=== PATIENT | female | born 1955 | race Caucasian/White ===

== ENCOUNTER 2018-05-24 08:10 | Observation (INO) | payer OTHER ==
[2018-05-24] MEDS ORDERED: ASPIRIN 81 MG CHEWABLE TAB PO ONE (08:32)
--- NOTE | 2018-05-24 08:36 | EDPHY ---
H & P Time Seen by Provider: 05/24/18 08:26 HPI/ROS: CHIEF COMPLAINT: Shortness of breath, chest pressure HISTORY OF PRESENT ILLNESS: The patient is a 62-year-old female with a history of hypothyroidism who presents emergency department with mild chest pressure and shortness of breath. The patient states she is visiting from [place]. They flew in on Saturday. She is staying in a cabin at 85 [address]. Last night it around 930 she began the developed shortness of breath. This was mild. She also had a mild and subtle chest pressure. This continued throughout the night. She had on restful sleep. She subsequently woke her up at 5:30 a.m.. They did send the mountain and her symptoms improved. She now has mild chest discomfort. No shortness of breath. No leg pain or swelling. No fevers or chills. No cough. REVIEW OF SYSTEMS: My complete review of systems is negative except as mentioned in the HPI. Past Medical/Surgical History: Includes hypothyroidism, GERD Past surgical history: Recent hand surgery Social history: The patient is . She is from [place]. She does not smoke. Smoking Status: Never smoked Physical Exam: Vitals noted. 207/127 GENERAL: Well-appearing, in no acute distress, alert. HEENT: Eyes normal to inspection, normal pharynx, no signs of dehydration. NECK: No thyromegaly, no lymphadenopathy, supple. RESPIRATORY: Clear to auscultation bilaterally, no rales, rhonchi or wheezing. CVS: Regular rate and rhythm, no rubs, murmurs, or gallops. ABDOMEN: Soft, nontender, nondistended, no organomegaly. BACK: Normal to inspection, no CVA tenderness. SKIN: Normal color, no rash, warm, dry. No pallor. EXTREMITIES: No pedal edema, no calf tenderness, no Homans sign or cords, no joint swelling. NEURO/PSYCH: Alert and oriented x3, normal mood and affect, normal motor sensory exam. No obvious cranial nerve deficit. Constitutional: Initial Vital Signs Temperature (C) 36.4 C 05/24/18 08:19 Heart Rate 66 05/24/18 08:19 Respiratory Rate 18 05/24/18 08:19 Blood Pressure 207/127 H 05/24/18 08:19 O2 Sat (%) 99 05/24/18 08:19 O2 Delivery Mode Room Air Allergies/Adverse Reactions: No Known Allergies Allergy (Unverified 05/24/18 08:18) Home Medications: Medication Instructions Recorded DEXILANT 05/24/18 Singulair 05/24/18 Synthroid 05/24/18 Medical Decision Making - Diagnostics Imaging Results: Imaging Impressions Chest X-Ray 05/24/18 08:32 Impression: Negative chest.. ED Course/Re-evaluation: In the emergency department I discussed possible etiologies with the patient and her . I answered all her questions. Repeat blood pressure was obtained. Laboratory studies, EKG and chest x-ray were ordered. Aspirin was given orally. EKG shows normal sinus rhythm, normal rate, normal axis, normal intervals. There are no ST or T-wave abnormalities. EKG is normal as interpreted by me. 173/115. Due the patient's chest pressure and elevated blood pressure she is given nitroglycerin sublingual. Post sublingual nitroglycerin the patient's blood pressure of 157/100. CBC, chemistry, LFTs are normal. Troponin is negative. Her repeat pressure was 177/102. I went discussed the findings with the patient. When I was in the room her diastolic pressure was 111. I discussed the plan for observation. I discussed the case with the hospitalist service, Dr. Silva. Dr. Garcia will admit. Differential Diagnosis: My differential includes but is not limited to ACS, acute [place], CHF, dissection, aneurysm, pneumonia, GERD, hypertensive urgency, hypertensive emergency, HAPE - Data Points Laboratory Results: Laboratory Results 05/24/18 08:37 05/24/18 08:37 05/24/18 05/24/18 05/24/18 08:40 08:37 08:37 WBC RBC Hgb Hct MCV MCH MCHC RDW Plt Count MPV Neut % (Auto) Lymph % (Auto) Foard % (Auto) Eos % (Auto) Baso % (Auto) Nucleat RBC Rel Count Absolute Neuts (auto) Absolute Lymphs (auto) Absolute Monos (auto) Absolute Eos (auto) Absolute Basos (auto) Absolute Nucleated RBC Immature Gran % Immature Gran # D-Dimer < 0.27 ug/mLFEU ug/mLFEU (0.00-0.50) Sodium 139 mEq/L mEq/L (135-145) Potassium 4.2 mEq/L mEq/L (3.3-5.0) Chloride 102 mEq/L mEq/L (97-110) Carbon Dioxide 27 mEq/l mEq/l (22-31) Anion Gap 10 mEq/L mEq/L (8-16) BUN 18 mg/dL mg/dL (7-23) Creatinine 0.8 mg/dL mg/dL (0.6-1.0) Estimated GFR > 60 Glucose 111 mg/dL H mg/dL (70-100) Calcium 9.7 mg/dL mg/dL (8.5-10.4) Total Bilirubin 0.5 mg/dL mg/dL (0.1-1.4) Conjugated Bilirubin 0.2 mg/dL mg/dL (0.0-0.5) Unconjugated Bilirubin 0.3 mg/dL mg/dL (0.0-1.1) AST 26 IU/L IU/L (14-46) ALT 35 IU/L IU/L (9-52) Alkaline Phosphatase 123 IU/L IU/L (38-126) POC Troponin I 0.01 ng/mL ng/mL (0.00-0.08) NT-Pro-B Natriuret Pep 115 pg/mL pg/mL (0-125) Total Protein 7.3 g/dL g/dL (6.3-8.2) Albumin 4.1 g/dL g/dL (3.5-5.0) Lipase 81 IU/L IU/L (23-300) 05/24/18 08:37 WBC 8.45 10^3/uL 10^3/uL (3.80-9.50) RBC 5.10 10^6/uL 10^6/uL (4.18-5.33) Hgb 14.7 g/dL g/dL (12.6-16.3) Hct 42.8 % % (38.0-47.0) MCV 83.9 fL fL (81.5-99.8) MCH 28.8 pg pg (27.9-34.1) MCHC 34.3 g/dL g/dL (32.4-36.7) RDW 13.0 % % (11.5-15.2) Plt Count 259 10^3/uL 10^3/uL (150-400) MPV 9.8 fL fL (8.7-11.7) Neut % (Auto) 73.1 % % (39.3-74.2) Lymph % (Auto) 19.6 % % (15.0-45.0) Foard % (Auto) 5.2 % % (4.5-13.0) Eos % (Auto) 1.2 % % (0.6-7.6) Baso % (Auto) 0.5 % % (0.3-1.7) Nucleat RBC Rel Count 0.0 % % (0.0-0.2) Absolute Neuts (auto) 6.18 10^3/uL 10^3/uL (1.70-6.50) Absolute Lymphs (auto) 1.66 10^3/uL 10^3/uL (1.00-3.00) Absolute Monos (auto) 0.44 10^3/uL 10^3/uL (0.30-0.80) Absolute Eos (auto) 0.10 10^3/uL 10^3/uL (0.03-0.40) Absolute Basos (auto) 0.04 10^3/uL 10^3/uL (0.02-0.10) Absolute Nucleated RBC 0.00 10^3/uL 10^3/uL (0-0.01) Immature Gran % 0.4 % % (0.0-1.1) Immature Gran # 0.03 10^3/uL 10^3/uL (0.00-0.10) D-Dimer Sodium Potassium Chloride Carbon Dioxide Anion Gap BUN Creatinine Estimated GFR Glucose Calcium Total Bilirubin Conjugated Bilirubin Unconjugated Bilirubin AST ALT Alkaline Phosphatase POC Troponin I NT-Pro-B Natriuret Pep Total Protein Albumin Lipase Medications Given: Discontinued Medications Aspirin (Aspirin) 324 mg PO EDNOW ONE Stop: 05/24/18 08:33 Last Admin: 05/24/18 08:46 Dose: 324 mg Labetalol HCl (Trandate Injection) 10 mg IVP ONCE ONE Stop: 05/24/18 09:59 Last Admin: 05/24/18 10:04 Dose: Not Given Nitroglycerin (Nitrostat) 0.4 mg SL EDNOW ONE Stop: 05/24/18 08:41 Last Admin: 05/24/18 08:46 Dose: 0.4 mg Point of Care Test Results: Chemistry 05/24/18 08:40 POC Troponin I 0.01 ng/mL ng/mL (0.00-0.08) Departure - Departure Disposition: [facility] Inpatient Acute Clinical Impression: Hypertensive urgency Chest pain Qualifiers: Chest pain type: unspecified Qualified Code(s): R07.9 - Chest pain, unspecified Hypertension Qualifiers: Hypertension type: unspecified Qualified Code(s): I10 - Essential (primary) hypertension Condition: Good Instructions: Chest Pain (ED), Hypertension (ED) Referrals: NANCY SHARMA [Other] - As per Instructions
--- NOTE | 2018-05-24 08:38 | CPEKG ---
Heart Rate: 60 RR Interval: 1000 P-R Interval: 184 QRSD Interval: 74 QT Interval: 432 QTC Interval: 432 P [place]: -1 QRS [place]: -7 T Wave [place]: 26 EKG Severity - NORMAL ECG - EKG Impression: SINUS RHYTHM Electronically Signed By: Yue Hall 26-May-2018 07:59:08
[2018-05-24] MEDS ORDERED: NITROGLYCERIN 0.4 MG BTL SL ONE ×2 (08:40)
[2018-05-24 08:46] LABS: PLATELET COUNT 259 10^3/uL (150-400)
[2018-05-24] MEDS ORDERED: LABETALOL HCL 5 MG/ML 20 ML MDV IVP ONE (09:58)
[2018-05-24] MEDS ORDERED: ACETAMINOPHEN 325 MG TAB PO PRN (10:14)
[2018-05-24] MEDS ORDERED: ONDANSETRON DISINTEGRATING 4 MG TAB PO PRN (10:14)
[2018-05-24] MEDS ORDERED: ONDANSETRON 4 MG/2 ML VIAL IVP PRN (10:14)
[2018-05-24] MEDS ORDERED: ACETAMINOPHEN 325 MG TAB ONE (11:36)
--- NOTE | 2018-05-24 13:51 | GHP ---
[f rep st] HISTORY AND PHYSICAL DATE OF ADMISSION: 05/24/2018 CHIEF COMPLAINT: Shortness of breath, chest pressure. HISTORY OF PRESENT ILLNESS: A 62-year-old female visiting from [place] presenting with shortness of breath and chest pressure. She has been staying up in [place] since Saturday night at an elev ation of 8500 feet. Last night at 9:30, she developed shortness of breath. It was hard to breathe d eeply. Noticed substernal chest pressure like a weight was on her chest. This did not radiate to he r jaw, neck or back. No tingling in her fingers. Had some mild nausea. Also had a headache. She w jess her up early this morning to drive down the mountain and felt better. It was easier to b reathe. She was previously on antihypertensives. She had a surgery in April and noted her systolic blood pres sure was in the 140s. She does not exercise regularly, but has 15 stairs at home and does not get ch est pain or shortness of breath when walking up those. Had no symptoms yesterday when doing a couple hikes at [facility]. Denies blurry vision, focal weakness, slurred speech. Has a mild head ache. REVIEW OF SYSTEMS: I completed a 10-point review of systems, negative except noted in HPI. PAST MEDICAL HISTORY: Chronic neck pain, was receiving physical therapy; hypertension, not currently on medications; hypothyroidism. PAST SURGICAL HISTORY: Four left hand surgeries, a right hand surgery, left ear canal reconstruction , 2 bunions on the left. FAMILY HISTORY: Mother with lung cancer. Father: Several MIs, 1st in his 40s. of a stroke. SOCIAL HISTORY: Visiting daughter here from [place]. No tobacco. Drinks a couple glasses of win e 2 times a week. HOME MEDICATIONS: Singulair, Dexilant, and levothyroxine. ALLERGIES: Acetaminophen, oxycodone. PHYSICAL EXAM: VITAL SIGNS: Temperature 36.4; blood pressure on admission 207/127, now 170/102; hea rt rate is in the 60s; respirations 16; 96% on room air. GENERAL: She is well appearing, sitting up in no acute distress. HEENT: PERRLA. Moist mucous membranes. CV: Regular rate and rhythm. No e chris. LUNGS: Clear. No crackles or wheezing. ABDOMEN: Soft, nontender, nondistended. Positive b owel sounds. : No Frank. MUSCULOSKELETAL: 5/5. NEURO: 2 through 12 intact. PSYCH: Alert and oriented x3. LABS: WBC 8, hemoglobin 14, hematocrit 42, platelets 259. D-dimer is less than 0.27. Sodium 139, p otassium 4.2, chloride 102, carbon dioxide 27, BUN 18, creatinine 0.8, glucose 111, calcium 9.7. LFT s within normal. Troponin 0.01; repeat is less than 0.012. BNP is 115. Lipase is 81. Chest x-ray is personally reviewed by me. No evidence of effusion or opacity. EKG is personally reviewed, normal sinus rhythm. ASSESSMENT AND PLAN: 1. Hypertensive urgency: Previously on antihypertensives. She was dosed intravenous labetalol in [facility] emergency room with blood pressure now 70s/102. I do not want to drop pressure too quickly within the first several hours. We will add an oral agent. Advised her to keep a log of her blood pressur es. Follow up with her primary care physician. 2. Chest pressure: Secondary to hypertension along with likely high altitude illness. No evidence of pulmonary edema. Symptoms improved with coming down the mountain. 3. Hypothyroidism, on levothyroxine. 4. Diet: Regular. 5. Deep vein thrombosis prophylaxis: Ambulating. 6. Disposition: Patient warrants observation admission for hypertensive urgency warranting telemetr y, blood pressure control. Can likely discharge in the morning. /[id number]/MODL
[2018-05-24] MEDS: amLODIPine BESYLATE 5 MG TAB PO SCH (14:53)
[2018-05-24] MEDS ORDERED: LEVOTHYROXINE 88 MCG TAB PO SCH (21:00)
[2018-05-24] MEDS ORDERED: (Dexlansoprazole [Dexilant] 60 MG) PO SCH (21:00)
[2018-05-24] MEDS ORDERED: MONTELUKAST SODIUM 10 MG TAB PO SCH (21:00)
[2018-05-25 07:07] VITALS: BP 151/93
[2018-05-25] MEDS: amLODIPine BESYLATE 5 MG TAB PO SCH (07:43)
--- NOTE | 2018-05-25 09:50 | ASMTLACE ---
LACE Length of stay for Answers: Less than 1 day current admission Acuity / Level of Answers: No Care: Did the patient have an inpatient admission? Comorbidities - select Answers: Other Notes: HTN all that apply Score: 1 Date Signed: 05/25/2018 09:50 AM Electronically Signed By:Fatou Harrison RN
--- NOTE | 2018-05-25 09:53 | ASMTCMCOM ---
CM Note CM Note Notes: Chart reviewed. 32 year old female admitted for OBS after becoming SOB at high altitude. Has been medically cleared for discharge to home. No needs identified. CM available should needs arise. Plan: Dc to home independently. Date Signed: 05/25/2018 09:52 AM Electronically Signed By:Fatou Harrison RN
--- NOTE | 2018-05-25 13:50 | GDS ---
[f rep st] DISCHARGE SUMMARY DISCHARGE DIAGNOSES: 1. Hypertensive urgency. 2. Headache. 3. Atypical chest pain. 4. Hypothyroidism. HISTORY OF PRESENT ILLNESS: 62-year-old female previously treated for hypertension who is here visit ing from [place], presented with shortness of breath and chest pressure. She had been staying in [place] since Saturday at a higher elevation, developed shortness of breath the night prior to ad mission. It was hard to take a deep breath and she also noticed substernal chest pressure like a deborah ght. This did not radiate to her jaw, neck, or back. She had no associated tingling or numbness. R eports some nausea and a mild headache. She woke her early in the morning and they drove yolanda n the mountain with improvement of her symptoms. HOSPITAL COURSE: 1. Hypertensive urgency: Initial systolic blood pressure greater than 200. There was no evidence o f end organ damage with normal creatinine and troponin. She had previously been treated with antihyp ertensives. Started Norvasc 5 mg with much improved pressures and symptoms resolved. This can be up titrated as an outpatient. If not controlled, can add hydrochlorothiazide for combination therapy. 2. Chest pressure, multifactorial with high altitude and elevated blood pressure: This has since re solved with improvement of blood pressure. 3. Hypothyroidism: Resume home medications. 4. Headache: This resolved with treatment of blood pressure and now being at lower altitude. DISPOSITION: Patient is stable for discharge. I advised her not to return to higher altitude while on this trip. FOLLOWUP: 1. Primary care physician for blood pressure check. 2. Advised her to go pharmacy here to have her blood pressure checked a couple of times. If noted t o be greater than 170s, recommend going to urgent care, so they could up-titrate her blood pressure m edication. PHYSICAL EXAMINATION: VITAL SIGNS: Today: Temperature 36.4, blood pressure 151/93, heart rate in th e 60s, respirations 12, 93% on room air. GENERAL: She is well appearing, sitting in bed in no acute distress. HEENT: PERRLA. Moist mucous membranes. CV: Regular rate and rhythm. No murmurs. No lower extremity edema. LUNGS: Clear. No crackles. ABDOMEN: Soft, nontender, nondistended. Posit misha bowel sounds. : No Frank. MUSCULOSKELETAL: 5/5 upper lower extremity strength. NEURO: 2 t hrough 12 intact. PSYCH: Alert and oriented x3. Time spent on discharge greater 30 minutes, coordinating discharge medications, counseling patient on followup plan and blood pressure checks. /[id number]/MODL
[2018-05-25] MEDS ORDERED: LEVOTHYROXINE 88 MCG TAB PO SCH (21:00)
[2018-05-25] MEDS ORDERED: MONTELUKAST SODIUM 10 MG TAB PO SCH (21:00)
[2018-05-25] MEDS ORDERED: Dexlansoprazole [Dexilant] 60 MG PO SCH (21:00)
== END 2018-05-25 11:58 | disposition home or self-care (01) ==
LOC: F2W 12:10
PROVIDERS: ADMIT Internal Medicine; ATTEND Internal Medicine
DX: I16.0 Hypertensive urgency (principal); R51 Headache; R07.9 Chest pain, unspecified; I10 Essential (primary) hypertension; E03.9 Hypothyroidism, unspecified; K21.9 Gastro-esophageal reflux disease without esophagitis; Z82.49 Family history of ischemic heart disease and other diseases of the circulatory system; Z82.3 Family history of stroke
CPT/HCPCS: 71046; 93005; G0378; 84484-PO